=== PATIENT | female | born 1965 | race Caucasian/White ===

== ENCOUNTER 2025-05-02 13:12 | Inpatient (IN) | payer OTHER ==
[~2025-05-02] VITALS: Ht 157.5 cm; Wt 83.9 kg
[~2025-05-02 13:12] MED LIST: CLARITIN PO; IBUPROFEN; OMEPRAZOLE PO; PEPCID PO; VALSARTAN PO
[2025-05-02 13:20] VITALS: TEMP 98.4
[2025-05-02] MEDS ORDERED: KETOROLAC TROMETHAMINE 30 MG/ML VIAL IV STA (13:32)
[2025-05-02 13:41] LABS: BASOPHILS % 0.3 % (0.0-1.0); EOSINOPHILS # (AUTO) 0.1 (0.0-0.4); EOSINOPHILS % 1.9 % (0.0-6.0); HEMOGLOBIN 12.9 g/dL (12.0-16.0); MEAN CORPUSCULAR HEMOGLOBIN 28.8 pg (28-32); MEAN CORPUSCULAR HGB CONC 33.1 g/dL (31-35); MEAN CORPUSCULAR VOLUME 87.1 fL (81-99); MONOCYTES # (AUTO) 0.4 (0.2-0.8); MONOCYTES % 5.1 % (4.4-11.3); NEUTROPHILS # (AUTO) 5.9 (2.1-6.9); NEUTROPHILS % 79.4 % (38.7-80.0); PLATELET COUNT 188 x10e3/uL (140-360); RED BLOOD COUNT 4.48 x10e6/uL (3.6-5.1); RED CELL DISTRIBUTION WIDTH 12.3 % (11.7-14.4); WHITE BLOOD COUNT 7.45 x10e3/uL (4.8-10.8)
[2025-05-02 14:11] LABS: ALBUMIN/GLOBULIN RATIO 1.1 (0.8-2.0); ANION GAP 14.7 mmol/L (8-16); BILIRUBIN,TOTAL 0.8 mg/dL (0.2-1.2); CREATININE, SERUM 1.01 mg/dL (0.57-1.11); POTASSIUM 3.7 mmol/L (3.5-5.1); TOTAL PROTEIN 7.5 g/dL (6.5-8.1)
[2025-05-02] MEDS: ONDANSETRON HCL INJ 2MG/ML 2ML 2 MG/ML VIAL IV STA (14:12)
[2025-05-02] MEDS: SODIUM CHLORIDE 0.9% 1000ML 1,000 ML IV STA (14:12)
[2025-05-02 14:24] LABS: BILIRUBIN,URINE NEGATIVE (NEGATIVE); CLARITY,URINE CLEAR (CLEAR); COLOR,URINE YELLOW (YELLOW); GLUCOSE, URINE NEGATIVE (NEGATIVE); KETONES,URINE 1+ (NEGATIVE); LEUKOCYTE ESTERASE ,URINE NEGATIVE (NEGATIVE); NITRITE,URINE NEGATIVE (NEGATIVE); PH,URINE 6 (5 - 7); PROTEIN,URINE DIPSTICK NEGATIVE (NEGATIVE); URINE UROBILINOGEN 0.2 mg/dL (0.2 - 1)
[2025-05-02] MEDS: Morphine 4mg INJECTION 4 MG/ML INJ IV STA (14:30)
[2025-05-02 14:41] LABS: BACTERIA,URINE FEW /HPF; EPITHELIAL CELLS,URINE FEW /LPF; WBC,URINE (MAN) 0-5 /HPF (0-5)
[2025-05-02 17:26] VITALS: PULSE 79; RESP 16
[2025-05-02] MEDS: SODIUM CHLORIDE 0.9% 1000ML 1,000 ML IV SCH (17:46)
[2025-05-02 20:39] VITALS: BP 147/62; PULSE 83; RESP 20; TEMP 98; O2SAT 100
[2025-05-02] MEDS: ONDANSETRON HCL INJ 2MG/ML 2ML 2 MG/ML VIAL IV PRN (21:41)
[2025-05-02] MEDS: Morphine 4mg INJECTION 4 MG/ML INJ IV PRN (21:41)
[2025-05-02 22:00] VITALS: BP 157/78; PULSE 83; RESP 20; TEMP 98; O2SAT 99
[2025-05-03] VITALS (8 sets, daily range): BP systolic 121–149; BP diastolic 62–81; PULSE 69–87; RESP 19–20; TEMP 98.1–98.8; O2SAT 98–100
[2025-05-03 06:52] LABS: BASOPHILS % 0.6 % (0.0-1.0); EOSINOPHILS # (AUTO) 0.3 (0.0-0.4); EOSINOPHILS % 6.1 % (0.0-6.0); HEMATOCRIT 38.7 % (34.2-44.1); HEMOGLOBIN 12.7 g/dL (12.0-16.0); LYMPHOCYTES # (AUTO) 1.7 (1.0-3.2); LYMPHOCYTES % 34.2 % (18.0-39.1); MEAN CORPUSCULAR HEMOGLOBIN 30.2 pg (28-32); MEAN CORPUSCULAR HGB CONC 32.8 g/dL (31-35); MEAN CORPUSCULAR VOLUME 91.9 fL (81-99); MONOCYTES # (AUTO) 0.4 (0.2-0.8); MONOCYTES % 8.4 % (4.4-11.3); NEUTROPHILS # (AUTO) 2.6 (2.1-6.9); NEUTROPHILS % 50.3 % (38.7-80.0); PLATELET COUNT 195 x10e3/uL (140-360); RED BLOOD COUNT 4.21 x10e6/uL (3.6-5.1); RED CELL DISTRIBUTION WIDTH 13.7 % (11.7-14.4); WHITE BLOOD COUNT 5.09 x10e3/uL (4.8-10.8)
[2025-05-03 07:25] LABS: ALBUMIN 3.1 g/dL (3.5-5.0); ANION GAP 13.8 mmol/L (8-16); BILIRUBIN,TOTAL 0.4 mg/dL (0.2-1.2); CALCIUM 8.1 mg/dL (8.4-10.2); CREATININE, SERUM 0.84 mg/dL (0.57-1.11); POTASSIUM 3.8 mmol/L (3.5-5.1); TOTAL PROTEIN 6.3 g/dL (6.5-8.1)
[2025-05-03] MEDS: TAMSULOSIN HCL 0.4 MG CAP PO SCH (09:04)
[2025-05-03] MEDS: HYDROCODONE/APAP 10MG-325MG TAB PO PRN (09:04)
[2025-05-03] MEDS ORDERED: KETOROLAC TROME10 MG PO (09:10)
[2025-05-03] MEDS ORDERED: ONDANSETRON ODT4 MG PO (09:10)
[2025-05-03] MEDS ORDERED: HYDROCODON-ACE1 EAC9 PO (09:10)
[2025-05-03] MEDS ORDERED: FLOMAX0.4 MG PO (09:10)
[2025-05-04] VITALS: BP 134/72; PULSE 67; RESP 18; TEMP 98.1; O2SAT 97
[2025-05-04 04:00] VITALS: BP 140/70; PULSE 69; RESP 18; TEMP 98.6; O2SAT 97
[2025-05-04] MEDS ORDERED: FENTANYL CITRATE/PF 100MCG/2 ML INJ ONE (06:45)
[2025-05-04] MEDS ORDERED: MIDAZOLAM HCL 2 MG/2 ML VIAL ONE (06:45)
[2025-05-04] MEDS ORDERED: LIDOCAINE HCL 2% LOCAL INJ 5 ML SDV VIAL INJ ONE (06:56)
[2025-05-04] MEDS ORDERED: PROPOFOL IV EMULSION 10 MG/ML 20 ML VIAL ONE (06:56)
[2025-05-04] MEDS ORDERED: ONDANSETRON HCL INJ 2MG/ML 2ML 2 MG/ML VIAL ONE (07:09)
[2025-05-04] MEDS ORDERED: DEXAMETHASONE SOD PHOS INJ 4 MG/ML SDV ONE (07:09)
[2025-05-04] MEDS ORDERED: KETOROLAC TROMETHAMINE 30 MG/ML VIAL ONE (07:09)
[2025-05-04] MEDS ORDERED: GLYCOPYRROLATE INJ 0.2 MG/ML VIAL ONE (07:09)
[2025-05-04] MEDS ORDERED: FAMOTIDINE 20 MG/2 ML VIAL IV ONE (07:09)
[2025-05-04 08:30] VITALS: BP 133/59; PULSE 97; RESP 18; TEMP 97.4; O2SAT 97
[2025-05-04] MEDS: LIDOCAINE 4% PATCH TP SCH (09:00)
[2025-05-04 11:36] VITALS: BP 141/77; PULSE 73; RESP 17; TEMP 97.9; O2SAT 97
[2025-05-04 15:00] VITALS: BP 121/68; PULSE 86; RESP 18; TEMP 98.3; O2SAT 98
[2025-05-04] MEDS ORDERED: KETOROLAC TROME10 MG PO (15:16)
== END 2025-05-04 15:50 | disposition home or self-care (01) | DRG 694 ==
LOC: ER 13:33 → ERHOLD 16:27 → MED/SURG3 20:45
PROVIDERS: ADMIT Internal Medicine; ATTEND Internal Medicine
PROC: 0TF6XZZ Fragmentation in Right Ureter, External Approach (ICD-10-PCS; principal; 2025-05-04 06:52)
DX: N13.2 Hydronephrosis with renal and ureteral calculous obstruction (principal); R31.29 Other microscopic hematuria; E66.9 Obesity, unspecified; I10 Essential (primary) hypertension; Z68.33 Body mass index [BMI] 33.0-33.9, adult; Z98.84 Bariatric surgery status; Z90.49 Acquired absence of other specified parts of digestive tract; Z88.1 Allergy status to other antibiotic agents; Z91.041 Radiographic dye allergy status
CPT/HCPCS: 36415; 50590; 74018; 74176; 80053; 81001; 83735; 85025; 87086; 99252; 99284; J1100; J1308; J1885; J2003; J2250; J2270; J2405; J2470; J7030

== ENCOUNTER → 2025-05-19 | Outpatient (REF) | payer OTHER ==
[~2025-05-19] MED LIST changes: +FLOMAX0.4 MG PO; +HYDROCODON-ACE1 EAC9 PO; +KETOROLAC TROME10 MG PO; +ONDANSETRON ODT4 MG PO
== END ==
LOC: RAD 15:13
PROVIDERS: ATTEND Urology
DX: N20.0 Calculus of kidney (principal)
CPT/HCPCS: 74018

== ENCOUNTER → 2025-06-01 | Outpatient (REF) | payer OTHER | LOC: RAD 12:31 | PROVIDERS: ATTEND Urology | DX: N20.0 Calculus of kidney (principal) | CPT/HCPCS: 74018 ==

== ENCOUNTER → 2025-07-27 | Day surgery (SDC) | payer OTHER ==
[~2025-07-27] MED LIST changes: +DEXAMETHASONE SOD PHOS INJ 4 MG/ML SDV ONE; +ESMOLOL HCL 100MG/10ML 10 MG/ML VIAL ONE; +FAMOTIDINE 20 MG/2 ML VIAL IV ONE; +FENTANYL CITRATE/PF 100MCG/2 ML INJ ONE; +GLYCOPYRROLATE INJ 0.2 MG/ML VIAL ONE; +KETAMINE HCL INJ 50 MG/ML 10 ML VIAL ONE; +LIDOCAINE HCL 2% LOCAL INJ 5 ML SDV VIAL INJ ONE; +MIDAZOLAM HCL 2 MG/2 ML VIAL ONE; +ONDANSETRON HCL INJ 2MG/ML 2ML 2 MG/ML VIAL ONE; +PROPOFOL IV EMULSION 10 MG/ML 20 ML VIAL ONE; +SEVOFLURANE INHAL SOLN 250 ML PEN BTL ONE
[2025-07-27] MEDS: LACTATED RINGER'S 1,000 ML ONE (06:06)
[2025-07-27] MEDS: CEFTRIAXONE 1 GM VIAL ONE (06:06)
[2025-07-27 08:30] VITALS: BP 140/76; PULSE 88; RESP 18; O2SAT 99
== END | disposition home or self-care (01) ==
LOC: OR 05:28
PROVIDERS: ATTEND Urology
DX: N20.0 Calculus of kidney (principal); I10 Essential (primary) hypertension; K21.9 Gastro-esophageal reflux disease without esophagitis; K29.70 Gastritis, unspecified, without bleeding; G89.29 Other chronic pain; E66.01 Morbid (severe) obesity due to excess calories; Z68.33 Body mass index [BMI] 33.0-33.9, adult; Z98.84 Bariatric surgery status; G47.33 Obstructive sleep apnea (adult) (pediatric); F41.8 Other specified anxiety disorders
CPT/HCPCS: 50590; 74018; 93005; J0696; J1100; J1308; J2003; J2250; J2405; J2704; J3010; J7121

== ENCOUNTER → 2025-09-02 | Outpatient (REF) | payer OTHER ==
[~2025-09-02] MED LIST changes: -DEXAMETHASONE SOD PHOS INJ 4 MG/ML SDV ONE; -ESMOLOL HCL 100MG/10ML 10 MG/ML VIAL ONE; -FAMOTIDINE 20 MG/2 ML VIAL IV ONE; -FENTANYL CITRATE/PF 100MCG/2 ML INJ ONE; -GLYCOPYRROLATE INJ 0.2 MG/ML VIAL ONE; -KETAMINE HCL INJ 50 MG/ML 10 ML VIAL ONE; -LIDOCAINE HCL 2% LOCAL INJ 5 ML SDV VIAL INJ ONE; -MIDAZOLAM HCL 2 MG/2 ML VIAL ONE; -ONDANSETRON HCL INJ 2MG/ML 2ML 2 MG/ML VIAL ONE; -PROPOFOL IV EMULSION 10 MG/ML 20 ML VIAL ONE; -SEVOFLURANE INHAL SOLN 250 ML PEN BTL ONE
== END ==
LOC: RAD 11:00
PROVIDERS: ATTEND Urology
DX: N20.0 Calculus of kidney (principal)
CPT/HCPCS: 74018